=== PATIENT | female | born 1950 | race African-American/Black ===

== ENCOUNTER 2017-11-25 15:58 | Inpatient (IN) | payer OTHER ==
[~2017-11-25] VITALS: Ht 160 cm; Wt 90.6 kg
--- NOTE | ~2017-11-25 | EKG ---
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1950 Requested By: Everardo Sigala Order Number: [id number] MD: Shahbaz Simpson Measurements Intervals [place] Rate: 82 P: 40 GA: 181 QRS: -30 QRSD: 134 T: 160 QT: 427 QTc: 499 Interpretive Statements Sinus rhythm Ventricular premature complex Nonspecific intraventricular conduction delay ST and T wave abnormality Compared to ECG 11/26/2017 11:28:55 Ventricular premature complex(es) now present ST and T wave abnormality is more pronounced Electronically Signed On 11-29-2017 8:50:27 CDT by Shahbaz Simpson [email or web address] <ELECTRONICALLY SIGNED> By: Shahbaz Simpson MD, [facility] 11/29/17 0850 6 6 Shahbaz Simpson MD, [facility] /EPI
--- NOTE | ~2017-11-25 | EKG ---
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
--- NOTE | ~2017-11-25 | HC ---
[facility] [place] [address] [place] [address] CONSULTATION Name: AMY THOMAS Room #: 460-P ADM IN M.R.#: [id number] Admission: 11/25/17 Attend Phys: Kendell Hinton MD Discharge: Date of : 54 Report #: [id number] THIS REPORT FOR: //name// CC: Smitha Santiago Kendell Hinton DATE OF SERVICE: 11/26/2017 ATTENDING PHYSICIAN: Dr. Hinton. REASON FOR CONSULTATION: Acute and chronic kidney disease. HISTORY OF PRESENT ILLNESS: This 67-year-old patient with longstanding diabetes and triopathy has had progressive renal failure. She has been followed in the Nephrology Clinic at [facility]. She has a left arm fistula placed approximately 5 weeks ago. She has developed progressive nausea and vomiting with some abdominal pain. She is admitted to the hospital. We do not have an old baseline creatinine, but I believe it is at least 3.5. Her creatinine at this time is up to 4.7 yesterday, down to 4.5 today with IV fluids. There has been no bloody emesis. PAST MEDICAL HISTORY: Longstanding diabetes mellitus with triopathy, status post left foot infection with left leg amputation last year at this hospital. She has had previous PCI with a total of 3 stents for coronary artery disease. She has had a previous cholecystectomy. FAMILY HISTORY: Positive for diabetes in a brother who was on dialysis and is . SOCIAL HISTORY: She is a former smoker. REVIEW OF SYSTEMS: GENERAL: She has been feeling poorly. EYES: Her vision is poor, but she can see out of both eyes. ENT: Hearing okay, swallows okay. Denies mouth ulcers. ENDOCRINE: Positive for the diabetes. RESPIRATORY: Denies pleuritic pain, shortness of breath, asthma, wheezing or hemoptysis. GASTROINTESTINAL: She has had the nausea and vomiting as mentioned. No known diagnosis of gastroparesis. GENITOURINARY: Continues to make urine without dysuria. NEUROLOGIC: Peripheral neuropathy, poor feeling in her feet. PSYCHIATRIC: Denies depression or anxiety. HOME MEDICATIONS: Include metolazone 5 mg daily, pantoprazole 40 mg daily, [facility] [address] [place] [address] CONSULTATION Name: AMY THOMAS Room #: 460-P [facility] IN M.R.#: [id number] Admission: 11/25/17 Attend Phys: Kendell Hinton MD Discharge: Date of : 54 Report #: [id number] cilostazol 100 mg b.i.d., metoprolol 100 mg daily, isosorbide dinitrate 10 mg t.i.d., atorvastatin 40 mg daily, calcitriol 0.25 mcg daily, rosuvastatin 40 mg daily, and clopidogrel 75 mg daily. PHYSICAL EXAMINATION: VITAL SIGNS: Pleasant, lucid patient in no distress. SKIN: Unremarkable. SKELETAL: Somewhat overweight. HEENT: Extraocular movements are full. Vision is poor. Hearing is intact. Mucous membranes are moist. Tongue, buccal mucosa benign. NECK: Supple. CHEST: Clear to auscultation. HEART: Regular. ABDOMEN: Soft and nontender. EXTREMITIES: Show left above the knee amputation and the right leg shows diminished pulses, brawny edema, and weakness. LABORATORY DATA: Hemoglobin 7.28 yesterday, platelets 357. White count is 8. Sodium 138, potassium 3.4, chloride 105, bicarbonate 24, creatinine 4.5, BUN 78. ASSESSMENT AND PLAN: 1. Acute on chronic kidney disease, appears to be somewhat volume depleted from the nausea and vomiting. Gentle IV saline is indicated. Empiric IV metoclopramide is indicated to see if that will resolve her nausea and vomiting. Her fistula is not quite ready for use yet and certainly there is some component of renal failure contributing to her nausea and vomiting, but I am going to try and delay the initiation of dialysis if at all possible in an effort to have the fistula mature. I am afraid she will be on dialysis before any event. 2. Diabetes mellitus with triopathy. 3. Nausea and vomiting, possible gastroparesis. 4. History of coronary artery disease status post percutaneous coronary interventions with stents. 5. Peripheral arterial disease, status post left ophow-ycc-wrjr amputation. By: 0852 [id number] Daniel Virgen MD /nt
--- NOTE | ~2017-11-25 | CATHLAB ---
[facility] [address] [place] [address] INVASIVE PROCEDURE REPORT Name: AMY THOMAS Room #: 238-P ADM IN M.R.#: [id number] Admission: 11/25/17 Attend Phys: Kendell Hinton MD Discharge: Date of : 54 Date of Service: 11/29/17 1351 Report #: [id number] THIS REPORT FOR: //name// APPROVED REPORT Study performed: 11/28/2017 15:46:46 Patient Details Patient Status: In-Patient Room #: 238 The patient is a 67 year-old female Event Personnel Everardo Sigala Range Management Specialist, Brandt Navarro RN, Marisela Marlow RTR, Reilly Pacheco Christine RTR Monitor Procedures Performed Art Access - R femoral artery* Hemostasis with Manual pressure Left Heart Cath Coronaries, Bypass Grafts [id number] LHCCORCABG 24232 Initial Mod Sed Same Phys/QHP Gr5y 999540 64583 Mod Sed Same Phys/QHP Ea 086921 Indication CHF Current Status: , Unstable angina , Chest pain Risk Factors Obesity, Peripheral Vascular Disease, Hypercholesterolemia, Coronary Artery DiseaseHypertensionRenal Failure, Diabetes Previous Procedures/Diagnoses Previous CABG Procedure Narrative The RT Groin^ was infiltrated with 1% Lidocaine subcutaneous anesthesia. A PINNACLE 4FR Sheath #[id number] sheath was inserted into the RFA^. Coronary angiography was performed using coronary diagnostic catheters. The right coronary system was accessed and visualized with a JR4 catheter. The left coronary system was accessed and visualized with a JL4 catheter. The left ventricle was accessed and visualized with a JR4 catheter. Left ventricular/Aortic Valve gradient assessed via catheter pullback. Hemostasis was obtained with manual pressure following sheath removal without any complications. The patient tolerated the procedure well and there were no complications associated with the procedure. There was no hematoma. [facility] [address] [place] [address] INVASIVE PROCEDURE REPORT Name: AMY THOMAS Room #: 238-P [facility] IN M.R.#: [id number] Admission: 11/25/17 Attend Phys: Kendell Hinton MD Discharge: Date of : 54 Date of Service: 11/29/17 1351 Report #: [id number] Intraoperative Conscious Sedation Sedation start time: 15:52 Case end Time: 16:48 Fentanyl 100 mcg Versed 3 mg Fluoro Time: 14.00 minutes Dose: DAP 87037.90 cGycm2 1940 mGy Contrast Type and Amount: Visipaque 110 ml Coronary Angiography The patient's coronary anatomy is right dominant. [place] Artery Percent Stenosis Left Main: % Prox LAD: 100 % Mid/Distal LAD: % Circumflex: % RCA: 100 % Ramus: % Diagnostic Cath LAD Patent MENDEZ to mid LAD, with no flow limiting lesions. Supplies septal perforators and diagonal arteries. Circumflex Occluded SVG to OM. OM1 Patent stent in OM1 with mild restenosis, supplies collateral blood flow to small branch vessels. Right Coronary Occluded SVG to PDA at distal anastomotic site. R PDA filled via collateral flow from LCA. Left Ventriculography Left Ventriculography was not performed. An LVEDP was measured and there is no gradient across the outflow tract. Hemodynamics The aortic pressure is 135/66 mmHg with a mean of 93 mmHg. The left ventricular pressure is 146/23 mmHg with a mean of mmHg. The left ventricular end diastolic pressure is 44 mmHg. Conclusion 1. Patent MENDEZ to mid LAD, with no flow limiting lesions. Supplies septal perforators and diagonal arteries. 2. Patent stent in OM1 with mild restenosis, supplies collateral blood flow to small branch vessels. 3. Occluded SVG to OM and PDA 4. Collateral blood flow to branch vessels. 5. Recommend medical therapy. <ELECTRONICALLY SIGNED> By: Everardo Sigala MD 11/29/17 135 135 135 Everardo Sigala MD /INF
--- NOTE | ~2017-11-25 | EKG ---
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
--- NOTE | ~2017-11-25 | 2DMMODE ---
[facility] [address] [place] [address] 2 D/M-MODE ECHOCARDIOGRAM Name: AMY THOMAS Room #: 238-P ADM IN M.R.#: [id number] Admission: 11/25/17 Attend Phys: Kendell Hinton MD Discharge: Date of : 54 Date of Service: 11/28/17 1536 Report #: [id number] THIS REPORT FOR: //name// APPROVED REPORT Study performed: 11/28/2017 12:48:08 EXAM: Comprehensive 2D, Doppler, and color-flow Echocardiogram Patient Location: ICU Room #: 238 Status: routine BSA: 1.98 HR: 84 bpm BP: 153/66 mmHg Other Information Study Quality: Fair Risk Factors: Cardiac Risk Factors: DM Indications Chest Pain 2D Dimensions IVSd: 14.56 (7-11mm) LVOT Diam: 19.15 (18-24mm) LVDd: 53.65 mm PWd: 12.31 (7-11mm) LVDs: 32.56 (25-40mm) Aortic Root: 24.04 mm IVC: 25.00 mm Asher's LVEF: 69.33 % Volumes Left Atrial Volume (Systole) Single Plane 4CH: 58.22 mL Aortic Valve AoV Peak Chris.: 2.12 m/s AO Peak Gr.: 17.98 mmHg LVOT Max P.12 mmHg LVOT Max V: 1.24 m/s GINO Vmax: 1.68 cm2 Mitral Valve E/A Ratio: 2.1 MV Decel. Time: 172.[address] [facility] [address] [place] [address] 2 D/M-MODE ECHOCARDIOGRAM Name: AMY THOMAS Room #: 238-P [facility] IN .R.#: [id number] Admission: 11/25/17 Attend Phys: Kendell Hinton MD Discharge: Date of : 54 Date of Service: 11/28/17 1536 Report #: [id number] MV E Max Chris.: 1.38 m/s MV A Chris.: 0.66 m/s MV PHT: 49.91 ms Pulmonary Vein P Vein A: 0.27 m/s P Vein A Dur.: 101.5 msec Tricuspid Valve TR Peak Chris.: 3.42 m/s RAP Estimate: 10.00 mmHg TR Peak Gr.: 46.81 mmHg PA Pressure: 56.00 mmHg Left Ventricle The left ventricle is normal size. Possible hypokinesis of the inferior wall. There is normal left ventricular wall thickness. Left ventricular systolic function is mild to moderately decreased. LVEF is 40-45%. Right Ventricle The right ventricle is normal size. The right ventricular systolic function is normal. Atria Left atrium is dilated. The right atrium size is normal. Aortic Valve The Aortic valve is sclerotic. No aortic regurgitation is present. There is no aortic valvular stenosis. Mitral Valve The mitral valve is normal in structure. Trace mitral regurgitation. No evidence of mitral valve stenosis. Tricuspid Valve The tricuspid valve is normal in structure. Pulmonic Valve The pulmonary valve is normal in structure. Trace pulmonic regurgitation. Great Vessels The aortic root is normal in size. <Conclusion> Technically difficult study [facility] [address] [place] [address] 2 D/M-MODE ECHOCARDIOGRAM Name: AMY THOMAS Room #: 238-P ADM IN M.R.#: [id number] Admission: 11/25/17 Attend Phys: Kendell Hinton MD Discharge: Date of : 54 Date of Service: 11/28/171535 Report #: [id number] The left ventricle is normal size. There is normal left ventricular wall thickness. Left ventricular systolic function is mild to moderately decreased. LVEF is 40-45%. The right ventricle is normal size. Left atrium is dilated. The Aortic valve is sclerotic. Trace mitral regurgitation. <ELECTRONICALLY SIGNED> By: Everardo Sigala MD 11/28/17 1536 35 35 Everardo Sigala MD /INF
--- NOTE | ~2017-11-25 | HC ---
[facility] [place] [place] [address] CONSULTATION Name: AMY THOMAS Room #: 460-P ADM IN M.R.#: [id number] Admission: 11/25/17 Attend Phys: Kendell Hinton MD Discharge: Date of : 54 Report #: [id number] THIS REPORT FOR: //name// CC: Smitha Santiago Kendell Hinton DATE OF SERVICE: 11/26/2017 INDICATION: Chest pain. HISTORY OF PRESENT ILLNESS: This is a 67-year-old female with a history of CABG, chronic kidney disease, diabetes, peripheral vascular disease, presenting with chest pain. She apparently was admitted for nausea, vomiting and abdominal pain. Upon further questioning, she reports having some atypical chest pains, occurring at rest. It usually resolves within a few minutes. It is not localized to one location in the chest. She also has been experiencing increasing shortness of breath, with minimal activity. There is no history of fever, cough, chills or diarrhea. 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 PAST MEDICAL HISTORY: Five-vessel CABG in 1998 with subsequent angioplasty procedures, diabetes mellitus, chronic kidney disease with recent fistula placement, peripheral vascular disease with left above knee amputation in 2017, history of anemia and hypertension. ALLERGIES: None. MEDICATIONS: Apparently Plavix and Norvasc. The rest are unknown. SOCIAL HISTORY: Denies tobacco use. FAMILY HISTORY: Negative for premature CAD. REVIEW OF SYSTEMS: A full 10-point review of systems performed. Only the pertinent positives and negatives are described in the HPI. PHYSICAL EXAMINATION: VITAL SIGNS: Blood pressure is 148/80, heart rate is 55 beats per minute. GENERAL APPEARANCE: This is an overweight female in no acute distress. HEENT: Normocephalic. Sclerae are anicteric. ENT: Oral mucosa moist. NECK: Supple. LUNGS: Diminished breath sounds at the bases. CARDIAC: Regular rate and rhythm, S1, S2 positive, 1/6 systolic murmur. ABDOMEN: Soft, nontender. [facility] [address] [place] [address] CONSULTATION Name: AMY THOMAS Room #: 460- ADM IN M.R.#: [id number] Admission: 11/25/17 Attend Phys: Kendell Hinton MD Discharge: Date of : 54 Report #: [id number] EXTREMITIES: Left AKA, right extremity with no cyanosis, positive edema. DATA: ECG reveals sinus bradycardia, nonspecific IVCD, nonspecific ST segment abnormality. ASSESSMENT AND PLAN: 1. Coronary artery bypass graft/coronary artery disease, reports atypical chest pains occurring at rest. Resolving within a few minutes. Given her history, would consider proceeding with noninvasive stress testing. 2. Dyspnea on exertion, rule out cardiomyopathy. Would benefit from Lasix at this time given the abnormal chest x-ray findings. We will need an echo to evaluate LV systolic function. However, the effectiveness of diuretic therapy is unclear given her underlying chronic kidney disease. 3. Peripheral vascular disease, reports no episodes of claudication. Status post left above knee amputation. 4. Diabetes mellitus, as per PCP. 5. Anemia, probably from chronic disease. Follow hemoglobin. 6. Chronic kidney disease, as per nephrology. <ELECTRONICALLY SIGNED> By: Everardo Sigala MD 11/27/17 0807 1437 0058 Everardo Sigala MD /nt
--- NOTE | ~2017-11-25 | EKG ---
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 11/29/17 0855 1213 12 Shahbaz Simpson MD, [facility] /EPI
[2017-11-25 16:01] VITALS: BP 156/47
[2017-11-25 16:43] LABS: BASOPHILS 0.8 % (0.0-2.0); EOSINOPHILS 2.5 % (0.0-3.0); HEMATOCRIT 25.3 % (37.0-47.0); LYMPHOCYTES 15.3 % (24.0-44.0); MCH 26.2 pg (26.0-34.0); MCHC 31.6 g/dL (28.0-37.0); MCV 82.7 fL (80.0-100.0); MONOCYTES 7.6 % (1.0-8.0); PLATELET COUNT 382 thou/uL (150-400); POLYS 73.8 % (36.0-66.0); RBC 3.06 mil/uL (4.20-5.00); RDW 17.1 % (10.5-14.5); WBC 8.1 thou/uL (4.0-11.0)
[2017-11-25 16:51] LABS: ANION GAP 10 mmol/L (7-16); BUN 82 mg/dL (7-18); CALCIUM 7.6 mg/dL (8.5-10.1); CHLORIDE 101 mmol/L (98-107); CO2 23 mmol/L (21-32); CREATININE 4.7 mg/dL (0.6-1.0); GLUCOSE 263 mg/dL (74-106); POTASSIUM 3.6 mmol/L (3.5-5.1); SODIUM 134 mmol/L (136-145)
[2017-11-25 16:59] LABS: ALBUMIN 2.6 g/dL (3.4-5.0); DIRECT BILIRUBIN 0.1 mg/dL (<0.1-0.3); LIPASE 320 U/L (73-393); SGOT 17 U/L (15-37); SGPT 22 U/L (30-65); TOTAL BILIRUBIN 0.4 mg/dL (<0.1-1.0); TOTAL PROTEIN 7.1 g/dL (6.4-8.2); TROPONIN-I <0.06 ng/mL (<0.06)
[2017-11-25 18:33] LABS: URINE BILIRUBIN NEGATIVE (Negative); URINE BLOOD 1+ (Negative); URINE CLARITY CLEAR; URINE COLOR YELLOW; URINE GLUCOSE-RANDOM* 1+ (Negative); URINE KETONES NEGATIVE (Negative); URINE LEUKOCYTES 1+ (Negative); URINE NITRITE NEGATIVE (Negative); URINE PROTEIN (DIPSTICK) 3+ (Negative); URINE UROBILINOGEN 0.2 E.U./dl (0.2-1.0)
[2017-11-25 18:49] LABS: BACTERIA 1-9 Few /HPF (None Seen); CASTS None Seen /LPF (None Seen); SQUAMOUS 0-3 Few /LPF (0-3); URINE RBC 3-10 Few /HPF (0-2)
[2017-11-25 18:50] LABS: CRYSTALS None Seen /LPF (None Seen)
[2017-11-25] MEDS ORDERED: NORVASC2.5 MG PO (18:55)
[2017-11-25] MEDS ORDERED: PLAVIX 75 MG TA75 M1 PO (18:55)
[2017-11-25 19:50] VITALS: BP 174/61
[2017-11-25 21:34] VITALS: BP 171/76
[2017-11-26] MEDS ORDERED: PROTONIX40 M1 PO (00:19)
[2017-11-26] MEDS ORDERED: ATORVASTATIN CA40 MG PO (00:20)
[2017-11-26] MEDS ORDERED: LOPRESSOR100 M1 PO (00:22)
[2017-11-26] MEDS ORDERED: CALCITRIOL0.25 MCG PO (00:24)
[2017-11-26] MEDS ORDERED: METOLAZONE 5 MG5 MG PO (00:25)
[2017-11-26] MEDS ORDERED: CILOSTAZOL 100100 M1 PO (00:26)
[2017-11-26] MEDS ORDERED: CRESTOR40 MG PO (00:27)
[2017-11-26] MEDS ORDERED: ISORDIL10 MG PO (00:30)
[2017-11-26 04:57] VITALS: BP 146/55
[2017-11-26 05:20] LABS: HEMATOCRIT 22.4 % (37.0-47.0); HEMOGLOBIN 7.2 gm/dL (12.0-15.0); MCH 26.1 pg (26.0-34.0); MCHC 32.1 g/dL (28.0-37.0); MCV 81.4 fL (80.0-100.0); RBC 2.76 mil/uL (4.20-5.00); RDW 17.2 % (10.5-14.5)
[2017-11-26 05:34] LABS: CALCIUM 7.6 mg/dL (8.5-10.1); CREATININE 4.5 mg/dL (0.6-1.0); POTASSIUM 3.4 mmol/L (3.5-5.1)
[2017-11-26 07:54] VITALS: BP 120/92
[2017-11-26 09:22] LABS: % SATURATION 5 % (20-39); IRON 17 ug/dL (50-170); TIBC 320 ug/dL (250-450)
[2017-11-26 12:10] VITALS: BP 129/58
[2017-11-26 16:31] VITALS: BP 138/90
[2017-11-26 19:45] VITALS: BP 143/56
[2017-11-27 02:16] VITALS: BP 145/58
[2017-11-27 05:10] LABS: ALBUMIN 2.3 g/dL (3.4-5.0); CALCIUM 7.6 mg/dL (8.5-10.1); CREATININE 4.8 mg/dL (0.6-1.0); PHOSPHORUS 4.9 mg/dL (2.5-4.9); POTASSIUM 3.4 mmol/L (3.5-5.1)
[2017-11-27 11:35] VITALS: BP 144/62
[2017-11-27 12:58] VITALS: BP 121/61
[2017-11-27 17:44] VITALS: BP 147/59
[2017-11-27 19:33] VITALS: BP 143/62
[2017-11-28] VITALS (22 sets, daily range): BP systolic 123–182; BP diastolic 52–81
[2017-11-28 06:12] LABS: ALBUMIN 2.5 g/dL (3.4-5.0); CALCIUM 7.8 mg/dL (8.5-10.1); CREATININE 5.1 mg/dL (0.6-1.0); PHOSPHORUS 4.3 mg/dL (2.5-4.9); POTASSIUM 3.8 mmol/L (3.5-5.1)
[2017-11-28 11:40] LABS: HEMATOCRIT 23.5 % (37.0-47.0); HEMOGLOBIN 7.4 gm/dL (12.0-15.0); MCH 25.4 pg (26.0-34.0); MCHC 31.4 g/dL (28.0-37.0); MCV 80.8 fL (80.0-100.0); RBC 2.91 mil/uL (4.20-5.00); WBC 11.4 thou/uL (4.0-11.0)
[2017-11-28 11:53] LABS: INR 1.1; PROTIME 11.4 Seconds (9.3-11.4)
[2017-11-29] VITALS (18 sets, daily range): BP systolic 110–160; BP diastolic 46–100
[2017-11-29 05:12] LABS: HEMOGLOBIN 6.9 gm/dL (12.0-15.0)
[2017-11-29 05:16] LABS: ABSOLUTE NEUTROPHILS 8.6 thou/uL (1.4-8.2); BASOPHILS 0.6 % (0.0-2.0); EOSINOPHILS 1.9 % (0.0-3.0); HEMATOCRIT 21.6 % (37.0-47.0); LYMPHOCYTES 9.2 % (24.0-44.0); MCH 25.7 pg (26.0-34.0); MCHC 32.1 g/dL (28.0-37.0); MCV 79.9 fL (80.0-100.0); MONOCYTES 7.3 % (1.0-8.0); PLATELET COUNT 348 thou/uL (150-400); RDW 17.9 % (10.5-14.5); WBC 10.6 thou/uL (4.0-11.0)
[2017-11-29 05:19] LABS: ALBUMIN 2.4 g/dL (3.4-5.0); CALCIUM 8.2 mg/dL (8.5-10.1); CREATININE 4.9 mg/dL (0.6-1.0); PHOSPHORUS 4.7 mg/dL (2.5-4.9); POTASSIUM 3.7 mmol/L (3.5-5.1)
[2017-11-29 09:34] LABS: HEMATOCRIT 22.1 % (37.0-47.0); HEMOGLOBIN 7.3 gm/dL (12.0-15.0)
[2017-11-29 19:36] LABS: HEMATOCRIT 27.4 % (37.0-47.0); HEMOGLOBIN 8.8 gm/dL (12.0-15.0)
[2017-11-30 01:06] LABS: HEP B SURFACE Ab(ANTI-HBS Non Reactive (()); HEPATITIS B SURFACE AG Negative (Negative)
[2017-11-30 04:07] VITALS: BP 143/53
[2017-11-30 05:53] LABS: HEMATOCRIT 25.5 % (37.0-47.0); HEMOGLOBIN 8.4 gm/dL (12.0-15.0); MCH 26.7 pg (26.0-34.0); MCHC 32.8 g/dL (28.0-37.0); MCV 81.4 fL (80.0-100.0); RBC 3.14 mil/uL (4.20-5.00); RDW 18.4 % (10.5-14.5); WBC 10.8 thou/uL (4.0-11.0)
[2017-11-30 06:13] LABS: ALBUMIN 2.5 g/dL (3.4-5.0); CALCIUM 7.9 mg/dL (8.5-10.1); CREATININE 4.4 mg/dL (0.6-1.0); PHOSPHORUS 3.7 mg/dL (2.5-4.9)
[2017-11-30 07:27] VITALS: BP 116/44
[2017-11-30 19:30] VITALS: BP 129/49
[2017-12-01 04:10] VITALS: BP 137/57
[2017-12-01 06:50] LABS: ALBUMIN 2.7 g/dL (3.4-5.0); CALCIUM 7.9 mg/dL (8.5-10.1); PHOSPHORUS 4.8 mg/dL (2.5-4.9); POTASSIUM 3.9 mmol/L (3.5-5.1)
[2017-12-01 06:51] LABS: CREATININE 6.5 mg/dL (0.6-1.0)
[2017-12-01 07:19] VITALS: BP 131/72
[2017-12-01 12:13] VITALS: BP 114/61
[2017-12-01 16:02] VITALS: BP 131/102
[2017-12-01 19:58] VITALS: BP 117/46
[2017-12-02 04:05] VITALS: BP 93/59
[2017-12-02 06:18] LABS: ALBUMIN 2.6 g/dL (3.4-5.0); PHOSPHORUS 5.8 mg/dL (2.5-4.9); POTASSIUM 4.5 mmol/L (3.5-5.1)
[2017-12-02 15:01] VITALS: BP 150/72
[2017-12-02 15:30] VITALS: BP 113/59
[2017-12-02 16:24] VITALS: BP 150/72
[2017-12-02 20:58] VITALS: BP 131/67
[2017-12-03 05:15] VITALS: BP 111/67
[2017-12-03 05:36] LABS: ALBUMIN 2.5 g/dL (3.4-5.0); CALCIUM 7.8 mg/dL (8.5-10.1); PHOSPHORUS 3.8 mg/dL (2.5-4.9); POTASSIUM 3.9 mmol/L (3.5-5.1)
[2017-12-03 05:54] LABS: CREATININE 5.6 mg/dL (0.6-1.0)
[2017-12-03] MEDS ORDERED: DEMADEX 2020 MG/1 TA PO (08:34)
[2017-12-03 12:31] VITALS: BP 132/80
[2017-12-03 14:01] VITALS: BP 150/72
[2017-12-03 14:17] VITALS: BP 150/72
== END 2017-12-03 14:21 | disposition home health service (06) | DRG 673 ==
LOC: ER 15:58 → ICU 18:43 → EROBS 18:43 → 4W 18:43 → 4E 18:43 → 4W 20:45 → ICU 11-28 10:11 → 4E 11-29 18:41
PROVIDERS: Hospitalist; Internal Medicine; Internal Medicine Cardiovascular Disease; Internal Medicine Nephrology; Physician Assistant
PROC: 02HV33Z Insertion of Infusion Device into Superior Vena Cava, Percutaneous Approach (ICD-10-PCS; principal; 2017-11-28)
PROC: B5181ZA Fluoroscopy of Superior Vena Cava using Low Osmolar Contrast, Guidance (ICD-10-PCS; principal; 2017-11-28)
PROC: 5A1D70Z Performance of Urinary Filtration, Intermittent, Less than 6 Hours Per Day (ICD-10-PCS; 2017-11-29)
PROC: B2111ZZ Fluoroscopy of Multiple Coronary Arteries using Low Osmolar Contrast (ICD-10-PCS; 2017-11-29)
PROC: 4A023N7 Measurement of Cardiac Sampling and Pressure, Left Heart, Percutaneous Approach (ICD-10-PCS; 2017-11-29)
PROC: 30243N1 Transfusion of Nonautologous Red Blood Cells into Central Vein, Percutaneous Approach (ICD-10-PCS; 2017-11-29)
PROC: B2181ZZ Fluoroscopy of Left Internal Mammary Bypass Graft using Low Osmolar Contrast (ICD-10-PCS; 2017-11-29)
PROC: B2131ZZ Fluoroscopy of Multiple Coronary Artery Bypass Grafts using Low Osmolar Contrast (ICD-10-PCS; 2017-11-29)
PROC: B244ZZZ Ultrasonography of Right Heart (ICD-10-PCS; 2017-12-01)
PROC: 02H633Z Insertion of Infusion Device into Right Atrium, Percutaneous Approach (ICD-10-PCS; 2017-12-01)
PROC: 0JH63XZ Insertion of Tunneled Vascular Access Device into Chest Subcutaneous Tissue and Fascia, Percutaneous Approach (ICD-10-PCS; 2017-12-01)
PROC: 5A1D70Z Performance of Urinary Filtration, Intermittent, Less than 6 Hours Per Day (ICD-10-PCS; 2017-12-02)
PROC: 5A1D70Z Performance of Urinary Filtration, Intermittent, Less than 6 Hours Per Day (ICD-10-PCS; 2017-12-03)
DX: N17.9 Acute kidney failure, unspecified (principal); I21.4 Non-ST elevation (NSTEMI) myocardial infarction; E43 Unspecified severe protein-calorie malnutrition; I13.2 Hypertensive heart and chronic kidney disease with heart failure and with stage 5 chronic kidney disease, or end stage renal disease; I25.110 Atherosclerotic heart disease of native coronary artery with unstable angina pectoris; E11.51 Type 2 diabetes mellitus with diabetic peripheral angiopathy without gangrene; E78.00 Pure hypercholesterolemia, unspecified; I25.10 Atherosclerotic heart disease of native coronary artery without angina pectoris; I50.9 Heart failure, unspecified; E11.22 Type 2 diabetes mellitus with diabetic chronic kidney disease; N18.6 End stage renal disease; D63.1 Anemia in chronic kidney disease; N83.201 Unspecified ovarian cyst, right side; E66.01 Morbid (severe) obesity due to excess calories; E11.42 Type 2 diabetes mellitus with diabetic polyneuropathy; E11.319 Type 2 diabetes mellitus with unspecified diabetic retinopathy without macular edema; E78.5 Hyperlipidemia, unspecified; E11.21 Type 2 diabetes mellitus with diabetic nephropathy; Y83.2 Surgical operation with anastomosis, bypass or graft as the cause of abnormal reaction of the patient, or of later complication, without mention of misadventure at the time of the procedure; Z79.4 Long term (current) use of insulin; Z68.35 Body mass index [BMI] 35.0-35.9, adult; Z95.1 Presence of aortocoronary bypass graft; Y92.89 Other specified places as the place of occurrence of the external cause; Z95.5 Presence of coronary angioplasty implant and graft; Z90.49 Acquired absence of other specified parts of digestive tract; Z87.891 Personal history of nicotine dependence; Z89.612 Acquired absence of left leg above knee; Z79.899 Other long term (current) drug therapy; Z99.2 Dependence on renal dialysis; Z83.3 Family history of diabetes mellitus
CPT/HCPCS: 10040; 10196; 10783; 32100